=== PATIENT | female | born 1960 | race Two or more races ===

== ENCOUNTER 2017-11-30 11:52 | Inpatient (IN) | payer BC ==
[~2017-11-30] VITALS: Ht 165.1 cm; Wt 68.0 kg
[2017-11-30] MEDS ORDERED: MORPHINE SULFATE INJ 4 MG/ML DISP.SYRIN ONE (11:59)
[2017-11-30] MEDS ORDERED: ONDANSETRON HCL/PF 4 MG/2 ML VIAL ONE (11:59)
[2017-11-30] MEDS ORDERED: MORPHINE SULFATE INJ 2 MG/ML DISP.SYRIN IV ONE (12:00)
[2017-11-30] MEDS ORDERED: IV NS 0.9% 500 ML BAG IV ONE (12:00)
[2017-11-30] MEDS ORDERED: ONDANSETRON HCL/PF 4 MG/2 ML VIAL IVP ONE (12:00)
[2017-11-30 12:16] LABS: BASOPHILS # (AUTO) 0.1 /CMM (0.0-0.2); BASOPHILS % (AUTO) 0.9 % (0.0-2.0); EOSINOPHILS % (AUTO) 1.1 % (0.0-6.0); HEMATOCRIT 37 % (33-45); HEMOGLOBIN 12.8 g/dL (11.5-14.8); LYMPHOCYTES # (AUTO) 2.2 /CMM (0.8-4.8); LYMPHOCYTES % (AUTO) 34.2 % (20.0-44.0); MEAN CORPUSCULAR HGB CONC 34 g/dl (31.0-36.0); MEAN CORPUSCULAR VOLUME 84 fL (82-100); MONOCYTES # (AUTO) 0.4 /CMM (0.1-1.30); NEUTROPHILS # (AUTO) 3.7 /CMM (1.8-8.9); NEUTROPHILS % (AUTO) 57.8 % (43.0-81.0); PLATELET COUNT (AUTO) 306 /CMM (150-450); RDW COEFFICIENT OF VARIATION 12.4 (11.5-15.0); RED BLOOD CELL COUNT(AUTO) 4.45 MIL/uL (4.0-5.2); WHITE BLOOD COUNT (AUTO) 6.5 K/uL (4.3-11.0)
--- NOTE | 2017-11-30 12:24 | NUR ---
BIBRA FROM WORK DT CHEST PAIN, 04/26, NON RADIATING SINCE LAST NIGHT. PATIENT IS AWAKE AND ALERT, APPEARS IN NOD ISTRESS. RESPIRATION EVEN AND UNLABORED.SKIN IS WARM TO TOUCH AND NON DIAPHORETIC,. AFEBRILE. VSS
[2017-11-30 12:25] LABS: CALCIUM, SERUM 9.2 mg/dL (8.5-10.1); CARBON DIOXIDE 27 mmol/L (21-32); CHLORIDE 105 mmol/L (98-107); CREATININE 0.7 mg/dL (0.6-1.3); GLUCOSE 102 mg/dL (74-106); POTASSIUM 3.4 mmol/L (3.5-5.1); SODIUM SERUM 140 mmol/L (136-145); UREA NITROGEN, BLOOD 19 mg/dL (7-18)
--- NOTE | 2017-11-30 12:25 | NUR ---
PATIENT ALSO COMPLAINTS OF ABDOMINAL DISCOMFORT AND NAUSEA. VSS
[2017-11-30 12:28] LABS: APPEARANCE,URINE Turbid (CLEAR); BILIRUBIN,URINE Negative (NEGATIVE); BLOOD, URINE Moderate Ery/uL (NEGATIVE); COLOR,URINE Yellow (YELLOW); KETONES,URINE Trace (NEGATIVE); LEUKOCYTE ESTERASE ,URINE Negative (NEGATIVE); NITRITE, URINE Negative (NEGATIVE); PROTEIN,URINE Negative (NEGATIVE); UGLUCOSE Negative (NEGATIVE)
[2017-11-30 12:31] LABS: ALANINE AMINOTRANSFERASE 133 U/L (12-78); ALBUMIN 3.9 g/dL (3.4-5.0); ALKALINE PHOSPHATASE 97 U/L (46-116); ASPARTATE AMINOTRANSFERASE 186 U/L (15-37); BILIRUBIN,DIRECT 0.4 mg/dL (0.0-0.2); BILIRUBIN,TOTAL 1.8 mg/dL (0.2-1.0); LIPASE 359 U/L (73-393); TOTAL PROTEIN, SERUM 7.4 g/dL (6.4-8.2)
[2017-11-30 12:33] LABS: TROPONIN I < 0.017 ng/mL (0.00-0.056)
[2017-11-30 12:34] LABS: BACTERIA,URINE Rare /HPF (None Seen); SQUAMOUS EPITHELIAL CELL,UR Few /HPF (None Seen); URINE AMORPHOUS PHOSPHATES Moderate /HPF (None Seen); WBC,URINE 0-3 /HPF (0-3)
--- NOTE | 2017-11-30 12:50 | NUR ---
CALLED DR MCLEAN FOR SURGERY CONSULT AND A PAGE WAS SENT OUT.
[2017-11-30] MEDS ORDERED: PIPERACILLIN /TAZOBACTAM 3.375 G in IV D5W 50 ML IV ONE (13:00)
--- NOTE | 2017-11-30 13:01 | NUR ---
CALLED PHARMACY FOR LOPEZ
--- NOTE | 2017-11-30 13:02 | NUR ---
CALLED [facility] [employer] [facility] AND REQUEST A MED SURG BED FOR THIS PATIENT.
[2017-11-30] MEDS ORDERED: ALEN70TA45 PO (13:23)
[2017-11-30] MEDS ORDERED: ROSU20TA PO (13:23)
[2017-11-30] MEDS ORDERED: HYDROCODONE/APAP 5/325MG 1 EACH TABLET PO PRN (13:30)
[2017-11-30] MEDS ORDERED: MAG HYDROX/AL HYDROX/SIMETH 30 ML UDC PO PRN (13:30)
[2017-11-30] MEDS ORDERED: MAGNESIUM HYDROXIDE 30 ML UDC PO PRN (13:30)
[2017-11-30] MEDS ORDERED: ONDANSETRON HCL/PF 4 MG/2 ML VIAL IVP PRN (13:30)
[2017-11-30] MEDS ORDERED: ACETAMINOPHEN 325 MG TABLET PO PRN (13:30)
[2017-11-30] MEDS ORDERED: ZOLPIDEM TARTRATE 5 MG TABLET PO PRN (13:30)
[2017-11-30] MEDS ORDERED: Z GUARD REMEDY 2 OZ OINT TP PRN (13:30)
--- NOTE | 2017-11-30 13:40 | NUR ---
PT IS ASSIGNED TO MED/SURG RM #: [id number], PT IS DIAGNOSED WITH GALLSTONES, AND CHERELLE MEZA IS THE ACCEPTING DNP.
--- NOTE | 2017-11-30 13:46 | NUR ---
REPORT GIVEN TO FLOOR RN FOR NICA
--- NOTE | 2017-11-30 13:51 | NUR ---
CALLED [facility] FOR A REPEAT PANEL CALL AND CHERELLE MEZA WAS PAGED.
--- NOTE | 2017-11-30 13:51 | NUR ---
DR MILLS PAGED
[2017-11-30] MEDS ORDERED: LORAZEPAM INJ 2 MG/ML VIAL IV PRN (15:00)
[2017-11-30] MEDS ORDERED: LORAZEPAM INJ 2 MG/ML VIAL ONE (15:02)
--- NOTE | 2017-11-30 15:15 | NUR ---
PT WAS TAKEN TO MRI
[2017-11-30] MEDS ORDERED: FENTANYL PF 100MCG/2ML AMPUL IV PRN (15:30)
--- NOTE | 2017-11-30 15:31 | NUR ---
PT IS GOING STRAIGHT TO 307.VSS
--- NOTE | 2017-11-30 16:10 | NUR ---
MS/RN OPENING NOTE PATIENT IS RECEIVED ON W/CHAIR. ALERT AND ORIENTED X4. DENIES SOB. RESPIRATION REGULAR AND UNLABORED. DENIES PAIN. ABDOMEN SLIGHTLY DISTENDED AND HYPOACTIVE BOWEL SOUNDS IN ALL FOUR QUADS. PATIENT STATED BM 11/30/17. LAC G 20 PATENT. ROOM AND UNIT ORIENTATION PROVIDED. PATIENT VERBALIZED UNDERSTANDING. BED LOW AND LOCKED. SIDE RAILS UP X2. CALL LIGHT WITHIN REACH. WILL CONTINUE TO MONITOR.
[2017-11-30 16:20] VITALS: BP 99/56
[2017-11-30] MEDS: PIPERACILLIN /TAZOBACTAM 3.375 G in IV NS 0.9% 50 ML IV SCH ×2 (17:05→21:03)
--- NOTE | 2017-11-30 17:21 | NUR ---
MS/RN NOTE RECEIVED ORDER FROM DR MCLEAN FOR CLEAR LIQUID DIET. THE ORDER READ BACK, VERIFIED. NOTED AND CARRIED OUT.
--- NOTE | 2017-11-30 18:15 | NUR ---
MS/RN CLOSING NOTE PATIENT ALERT AND ORIENTED X4. DENIES SOB. RESPIRATION REGULAR AND UNLABORED. O2 SATURATION IN ROOM AIR AT 96%. DENIES PAIN. LAC G 20 PATENT AND SALINE LOCKED. BED LOW AND LOCKED. SIDE RAILS UP X2. CALL LIGHT WITHIN REACH. WILL ENDORSE TO PATTERN STAMPER.
--- NOTE | 2017-11-30 19:35 | NUR ---
MS RN INITIAL NOTE PT IS IN BED AWAKE AND ALERT, ABLE TO MAKE NEEDS KNOWN. NO SIGNS OF SOB OR DISTRESS, BREATHING EVENLY AND UNLABORED ON RA. DENIES PAIN AT THIS TIME. IV ACCESS IS INTACT AND PATENT.. PT AWARE OF NPO STATUS POST MIDNIGHT, CONSENTS ARE IN CHART. BED IS IN LOW AND LOCKED POSITION, CALL LIGHT WITHIN REACH. WILL CONTINUE TO MONITOR PT
[2017-11-30 20:00] VITALS: BP 101/53
[2017-12-01] MEDS: PIPERACILLIN /TAZOBACTAM 3.375 G in IV NS 0.9% 50 ML IV SCH (03:25)
--- NOTE | 2017-12-01 06:25 | NUR ---
MS RN CLOSING NOTE PT IS IN BED AWAKE AND ALERT, ABLE TO MAKE NEEDS KNOWN. NO SIGNS OF SOB OR DISTRESS, BREATHING EVENLY AND UNLABORED ON RA. PT IS NPO FOR SX. IV ACCESS WAS CHANGE AND IS INTACT. NO ACUTE CHANGES THROUGHOUT THE SHIFT, ALL NEEDS WERE ANTICIPATED AND MET.BED IS IN LOW AND LOCKED POSITION, CALL LIGHT WITHIN REACH. WILL ENDORSE TO DAYSHIFT.
[2017-12-01 06:26] LABS: BASOPHILS % (AUTO) 0.6 % (0.0-2.0); EOSINOPHILS % (AUTO) 1.9 % (0.0-6.0); HEMATOCRIT 38 % (33-45); HEMOGLOBIN 12.5 g/dL (11.5-14.8); LYMPHOCYTES % (AUTO) 47.2 % (20.0-44.0); MEAN CORPUSCULAR HGB CONC 33 g/dl (31.0-36.0); MEAN CORPUSCULAR VOLUME 86 fL (82-100); MONOCYTES # (AUTO) 0.5 /CMM (0.1-1.30); MONOCYTES % (AUTO) 8.4 % (2.0-12.0); NEUTROPHILS # (AUTO) 2.7 /CMM (1.8-8.9); NEUTROPHILS % (AUTO) 41.9 % (43.0-81.0); RDW COEFFICIENT OF VARIATION 13.6 (11.5-15.0); RED BLOOD CELL COUNT(AUTO) 4.35 MIL/uL (4.0-5.2); WHITE BLOOD COUNT (AUTO) 6.4 K/uL (4.3-11.0)
[2017-12-01 06:44] LABS: INR 1.02 (0.87-1.13)
[2017-12-01 06:53] LABS: THYROID STIMULATING HORMONE 3.964 uIU/mL (0.358-3.74)
[2017-12-01 06:56] LABS: ALBUMIN 3.6 g/dL (3.4-5.0); BILIRUBIN,TOTAL 2.6 mg/dL (0.2-1.0); CALCIUM, SERUM 8.5 mg/dL (8.5-10.1); CREATININE 0.7 mg/dL (0.6-1.3); MAGNESIUM 2.1 mg/dL (1.8-2.4); PHOSPHORUS 3.8 mg/dL (2.5-4.9)
--- NOTE | 2017-12-01 07:30 | NUR ---
RECEIVED PT. IN AM.NPO FOR SURGERY,VS STABLE,WALKING,HEP LOCK INTACT.
[2017-12-01 08:00] VITALS: BP 96/63
[2017-12-01 08:15] LABS: PLATELET COUNT (AUTO) 277 /CMM (150-450)
[2017-12-01] MEDS ORDERED: PANTOPRAZOLE 40 MG VIAL IV SCH (09:00)
--- NOTE | 2017-12-01 10:00 | NUR ---
LEFT FOR OR.NO C/OF PAIN,SPOUSE ACCOMPANYING HER.
[2017-12-01] MEDS ORDERED: BUPIVACAINE 0.25% 75 MG/30 ML VIAL ONE (10:07)
[2017-12-01] MEDS ORDERED: FENTANYL PF 100MCG/2ML AMPUL ONE ×2 (10:18→11:23)
[2017-12-01] MEDS ORDERED: SUCCINYLCHOLINE CHLORIDE 20 MG/ML VIAL ONE (10:18)
[2017-12-01] MEDS ORDERED: ONDANSETRON HCL/PF 4 MG/2 ML VIAL ONE (11:25)
[2017-12-01] MEDS ORDERED: oxyCODONE/APAP (5/325 MG) 1 UDTAB TABLET PO PRN (12:00)
[2017-12-01] MEDS ORDERED: IV D5/0.45 NACL 1,000 ML IV PRN (12:00)
[2017-12-01] MEDS ORDERED: MORPHINE SULFATE INJ 4 MG/ML DISP.SYRIN ONE (12:10)
--- NOTE | 2017-12-01 12:50 | NUR ---
RETURNED FROM OR.VS STABLE.SCANT AMT. SANGUINOS DRAINAGE ON UPPER LEFT BANDAID ON ABD.OTHERWISE DRESSINGS DRY AND INTACT.MONITORING VS STABLE.HOOKED UP TO IV.CALL GOMES WITHIN REACH.SPOUSE PRESENT.
[2017-12-01] MEDS ORDERED: IV D5/0.45 NACL W/20 MEQ KCL 1L IV PRN ×2 (13:00)
--- NOTE | 2017-12-01 15:30 | NUR ---
PT.C/O MUCUS IN THROAT,CHOLO HERNANDEZ RAILROAD WORKER.RECEIVED ORDER FOR MUCINEX.
[2017-12-01 16:00] VITALS: BP 117/71
[2017-12-01] MEDS ORDERED: GUAIFENESIN LA 600 MG TABLET.SA PO PRN (16:00)
--- NOTE | 2017-12-01 18:00 | NUR ---
SPOUSE RETURNING,WANTS TO TAKE PT. HOME, PT.WAS JUST UP TO BATHROOM AND VOIDED.ATE SOME OF LIQ. DINNER,PT. ANXIOUS TO LEAVE WELL.TEXTED GRECIA PALEOLOGY PROFESSOR AGAIN,STATES SHE WILL CHECK PT,S RECORDS AND GET BACK REGARDING DISCH. TONIGHT.
[2017-12-01] MEDS ORDERED: ANCEF 1 GM/50 ML D5W IV SCH ×2 (19:00)
--- NOTE | 2017-12-01 19:00 | NUR ---
ENDORSED TO [place]E. CHAPMAN REGARDING MERA HERNANDEZ NEEDING TO GIVE OK FOR DC TONOC.GIVEN FULL STATUS REPORT ON PT.AWARE SURGEON ALREADY GAVE OK.
--- NOTE | 2017-12-01 19:15 | NUR ---
MS RN OPENING NOTE RECEIVED PATIENT IN BED, ALERT ORIENTED X4, ON ROOM AIR, TOLERATING WELL. IN NO APPARENT DISTRESS OR DISCOMFORT AT THIS TIME. RESPIRATIONS EVEN AND UNLABORED. DENIES SOB. VITAL SIGNS WNL. PATIENT IS ABLE TO VERBALIZE NEEDS. CONTINENT, ABLE TO AMBULATE INDEPENDENTLY. PATIENT DENIES NV, ABLE TO VOID. PATIENT WITH SEVERAL PATCHES ON THE ABDOMEN POST SURGERY. NO SIGN OF BLEEDING OR INFECTION OBSERVED AT THIS TIME. LEFT FA IV SITE, SL, PATENT AND INTACT. PATIENT AND AT BEDSIDE WAITING TO BE DISCHARGED THE SURGEON OKED TO BE DCED, IF MEETS THE CRITERIA. DR. HERNANDEZ WAS MADE AWARE. WAITING FOR FINAL DISCHARGE ORDER AT THIS TIME. MEANWHILE, SAFETY MEASURES IN PLACE, BED IN LOW LOCKED POSITION, SIDE RAILS UP X2, CALL LIGHT WITHIN EASY REACH, WILL CONTINUE TO MONITOR.
--- NOTE | 2017-12-01 19:30 | NUR ---
DR HERNANDEZ ORDERED STAT BLOOD WORK BEFORE PATIENT DISCHARGE, PATIENT WAS MADE AWARE. WAITING FOR FINAL RESULTS. WILL CONTINUE TO MONITOR.
[2017-12-01 20:09] LABS: BASOPHILS # (AUTO) 0.1 /CMM (0.0-0.2); BASOPHILS % (AUTO) 0.5 % (0.0-2.0); EOSINOPHILS % (AUTO) 0.4 % (0.0-6.0); HEMATOCRIT 35 % (33-45); HEMOGLOBIN 12.1 g/dL (11.5-14.8); LYMPHOCYTES # (AUTO) 1.4 /CMM (0.8-4.8); LYMPHOCYTES % (AUTO) 11.6 % (20.0-44.0); MEAN CORPUSCULAR HGB CONC 35 g/dl (31.0-36.0); MEAN CORPUSCULAR VOLUME 85 fL (82-100); MONOCYTES # (AUTO) 0.9 /CMM (0.1-1.30); MONOCYTES % (AUTO) 7.3 % (2.0-12.0); NEUTROPHILS # (AUTO) 9.5 /CMM (1.8-8.9); NEUTROPHILS % (AUTO) 80.2 % (43.0-81.0); PLATELET COUNT (AUTO) 286 /CMM (150-450); RDW COEFFICIENT OF VARIATION 12.3 (11.5-15.0); RED BLOOD CELL COUNT(AUTO) 4.12 MIL/uL (4.0-5.2); WHITE BLOOD COUNT (AUTO) 11.9 K/uL (4.3-11.0)
[2017-12-01 20:20] LABS: CALCIUM, SERUM 8.5 mg/dL (8.5-10.1); CREATININE 0.7 mg/dL (0.6-1.3); POTASSIUM 3.9 mmol/L (3.5-5.1)
[2017-12-01 20:26] LABS: ALBUMIN 3.6 g/dL (3.4-5.0); BILIRUBIN,DIRECT 0.3 mg/dL (0.0-0.2); BILIRUBIN,TOTAL 1.6 mg/dL (0.2-1.0); TOTAL PROTEIN, SERUM 6.9 g/dL (6.4-8.2)
--- NOTE | 2017-12-01 20:30 | NUR ---
BLOOD WORK RESULTS ARE IN, DR. HERNANDEZ WAS MADE AWARE. REVIEWED THE RESULTS AND GAVE TELEPHONE/VERBAL ORDER TO DISCHARGE THE PATIENT.
--- NOTE | 2017-12-01 21:15 | NUR ---
DISCHARGE ORDER RECEIVED. DISCHARGE INSTRUCTIONS GIVEN TO THE PATIENT. IN STABLE CONDITION, RESPIRATIONS EVEN AND UNLABORED, IN NO APPARENT DISTRESS OR DISCOMFORT AT THIS TIME. VITAL SIGNS STABLE, DENIES PAIN AND SOB AT THIS TIME. PATIENT RECEIVED DISCHARGE FOLDER , REVIEWED ALL THE BELONGINGS, DISCUSSED THE PRESCRIBED MEDICATIONS AND HOME MEDICATIONS TO BE TAKEN INDICATED AND INSTRUCTED. PATIENT VERBALIZES UNDERSTANDING OF ALL TEACHINGS AND INSTRUCTIONS. IV SITE DISCONTINUED, WRIST BAND REMOVED. PATIENT WAS ESCORTED OUT OF THE UNIT AND THE HOSPITAL VIA WHEELCHAIR, ACCOMPANIED BY THE FELICITA GAMBINO AND .
--- NOTE | 2017-12-01 21:25 | NUR ---
PATIENT LEFT THE UNIT AT 21:25.
[2017-12-02] MEDS ORDERED: ATORVASTATIN 40 MG TABLET PO SCH (22:00)
== END 2017-12-01 21:22 | disposition home or self-care (01) | DRG 419 ==
LOC: ER 11:53 → MED 14:10
PROVIDERS: ADMIT Hospitalist; ATTEND Hospitalist
PROC: 0FT44ZZ Resection of Gallbladder, Percutaneous Endoscopic Approach (ICD-10-PCS; principal; 2017-12-01 10:44)
DX: K80.10 Calculus of gallbladder with chronic cholecystitis without obstruction (principal); E87.6 Hypokalemia; Z87.11 Personal history of peptic ulcer disease; R74.0 Nonspecific elevation of levels of transaminase and lactic acid dehydrogenase [LDH]; E80.6 Other disorders of bilirubin metabolism
CPT/HCPCS: 36415; 71045-TC; 74181-TC; 76705-TC; 80048-TC; 80053-TC; 80061-TC; 80076-TC; 81000-TC; 82247-TC; 82248-TC; 83690-TC; 83735-TC; 84100-TC; 84443-TC; 84484-TC; 85025-TC; 85730-TC; 87081-TC; 88304-TC; 88305-TC; A4216; A4606; C9113; J0330; J0690; J2060; J2270; J2405; J2543; J2704; J2710; J3010; J3480; J3490; J7040; J7060; Z7610